=== PATIENT | female | born 1995 | race Caucasian/White ===

== ENCOUNTER → 2016-08-06 | Outpatient (REF) | payer OTHER | LOC: M LAB REF 18:14 | PROVIDERS: ATTEND Physician Assistant | DX: R30.0 Dysuria (principal) ==

== ENCOUNTER → 2017-01-23 | Outpatient (CLI) | payer OTHER ==
[2017-01-23 18:50] LABS: VITAMIN B12 LEVEL 749 PG/ML (247-911)
[2017-01-23 18:53] LABS: ALBUMIN/GLOBULIN RATIO 1.29 (1.00-1.93); ALKALINE PHOSPHATASE 70 U/L (45-117); ALT/SGPT 21 U/L (12-78); ANION GAP 8 MEQ/L (8-16); AST/SGOT 11 U/L (15-37); BILIRUBIN,TOTAL 0.3 MG/DL (0.2-1.0); BLOOD UREA NITROGEN 12 MG/DL (7-18); CALCIUM LEVEL 9.6 MG/DL (8.5-10.1); CARBON DIOXIDE LEVEL 24 MEQ/L (21-32); CHLORIDE LEVEL 108 MEQ/L (98-107); CREATININE FOR GFR 0.68 MG/DL (0.55-1.02); FERRITIN 16 NG/ML (8-252); FREE T4 1.02 NG/DL (0.78-1.33); GLUCOSE, FASTING 89 MG/DL (70-105); PERCENT SATURATION 17.8 % (13.2-37.4); POTASSIUM SERUM 3.8 MEQ/L (3.5-5.1); SODIUM LEVEL 140 MEQ/L (136-145); TOTAL IRON BINDING CAPACITY 297 UG/DL (250-450); TOTAL PROTEIN 7.1 GM/DL (6.4-8.2)
[2017-01-27 14:17] LABS: SEROTONIN QUANTITATIVE LEVEL 16 ng/mL (0-420)
== END ==
LOC: M LAB 17:30
PROVIDERS: ATTEND Psychiatry & Neurology Psychiatry
DX: F51.5 Nightmare disorder (principal)

== ENCOUNTER → 2017-07-21 | Outpatient (CLI) | payer OTHER | LOC: M EKG 15:43 | DX: R00.0 Tachycardia, unspecified (principal) ==